=== PATIENT | female | born 1995 | race Caucasian/White ===

== ENCOUNTER 2018-03-24 10:19 | Emergency (ER) | payer OTHER ==
[2018-03-24] MEDS: ADACEL/BOOSTRIX VACCINE (DIPHTH/PERTUSS/ACELL/TETANUS)0.5ML SYR (90715) IM (10:59)
[2018-03-24] MEDS ORDERED: ONDANSETRON 4MG/2ML VIAL (J2405) IV (11:45)
[2018-03-24] MEDS: MECLIZINE 25 MG TABLET PO (11:52)
[2018-03-24] MEDS: NORCO, ANEXSIA 5/325MG TABLET (HYDROcodone/ACETAMINOPHEN) PO (11:53)
[2018-03-24] MEDS: ONDANSETRON 4 MG ORAL DISINTEGRATING TAB (Q0162 PER 1MG) PO (11:53)
== END 2018-03-24 12:53 | disposition home or self-care (01) ==
LOC: M ED 10:19
DX: S06.0X0A Concussion without loss of consciousness, initial encounter (principal); S01.01XA Laceration without foreign body of scalp, initial encounter; W22.8XXA Striking against or struck by other objects, initial encounter; Y92.018 Other place in single-family (private) house as the place of occurrence of the external cause; J30.81 Allergic rhinitis due to animal (cat) (dog) hair and dander; Z91.040 Latex allergy status
CPT/HCPCS: 90715

== ENCOUNTER 2018-03-31 11:10 | Emergency (ER) | payer OTHER | END 2018-03-31 11:48 | disposition home or self-care (01) | LOC: M ED 11:10 | DX: Z48.02 Encounter for removal of sutures (principal) | CPT/HCPCS: 99282 ==

== ENCOUNTER → 2018-09-22 | Outpatient (REF) | payer OTHER ==
[~2018-09-22] MED LIST: LAMI25TA PO; ZOFR4TAB14 PO
[2018-09-22 18:10] LABS: CHLAMYDIA DNA AMPLIFICATION NEGATIVE (NEGATIVE); GC DNA AMPLIFICATION NEGATIVE (NEGATIVE)
== END ==
LOC: M SFHCLERA 13:18
PROVIDERS: ATTEND Nurse Practitioner Family
DX: R11.10 Vomiting, unspecified (principal); R10.32 Left lower quadrant pain

== ENCOUNTER 2019-06-13 20:57 | Emergency (ER) | payer OTHER ==
[~2019-06-13] VITALS: Ht 162.6 cm; Wt 56.8 kg
[2019-06-13] MEDS ORDERED: BUSP10TA PO (21:06)
[2019-06-13 21:29] LABS: APPEARANCE, URINE CLEAR (CLEAR); BACTERIA, URINE AUTO NEGATIVE (NEGATIVE); BILIRUBIN, URINE AUTO NEGATIVE (NEGATIVE); BLOOD, URINE BLOOD NEGATIVE (NEGATIVE); COLOR, URINE YELLOW (YELLOW); GLUCOSE, URINE (UA) AUTO NEGATIVE (NEGATIVE); KETONE, URINE AUTO 1+ mg/dL (NEGATIVE); LEUKOCYTE ESTERASE, URINE AUTO TRACE (NEGATIVE); MUCUS, URINE SMALL (NEGATIVE); NITRITE, URINE AUTO NEGATIVE (NEGATIVE); PROTEIN, URINE AUTO NEGATIVE (NEGATIVE); RBC, URINE AUTO 7 /HPF (0-3); SPECIFIC GRAVITY URINE AUTO 1.029 (1.002-1.035); SQUAMOUS EPITHELIAL CELL UR AU 5 /HPF (0-6); UROBILINOGEN, URINE AUTO 0.2 mg/dL (0.0-2.0); WBC, URINE AUTO 3 /HPF (0-3)
[2019-06-13] MEDS ORDERED: NS 1,000 ML IV ONE (22:00)
[2019-06-13 22:42] LABS: HEMATOCRIT 34.2 % (36.0-47.0); HEMOGLOBIN 10.4 g/dl (12.0-15.5); MEAN CORPUSCULAR HEMOGLOBIN 19.9 pg (27.0-33.0); MEAN CORPUSCULAR HGB CONC 30.4 g/dl (32.0-36.5); MEAN CORPUSCULAR VOLUME 65.5 fl (80.0-96.0); PLATELET COUNT, AUTOMATED 246 10^3/uL (150-450); RED BLOOD COUNT 5.22 10^6/uL (4.00-5.40); WHITE BLOOD COUNT 14.3 10^3/uL (4.0-10.0)
[2019-06-13 23:12] LABS: ALBUMIN 4.6 GM/DL (3.2-5.2); ALT/SGPT 16 U/L (12-78); BILIRUBIN,TOTAL 1.9 MG/DL (0.2-1.0); BLOOD UREA NITROGEN 15 MG/DL (7-18); CALCIUM LEVEL 9.3 MG/DL (8.5-10.1); CARBON DIOXIDE LEVEL 26 MEQ/L (21-32); CHLORIDE LEVEL 108 MEQ/L (98-107); CREATININE FOR GFR 0.66 MG/DL (0.55-1.30); GLOMERULAR FILTRATION RATE > 60.0 (>60); GLUCOSE, FASTING 87 MG/DL (70-100); LIPASE 120 U/L (73-393); POTASSIUM SERUM 4.4 MEQ/L (3.5-5.1); SODIUM LEVEL 140 MEQ/L (136-145); TOTAL PROTEIN 7.4 GM/DL (6.4-8.2)
[2019-06-13 23:27] LABS: HCG, SERUM QUALITATIVE NEGATIVE (NEGATIVE)
[2019-06-13] MEDS ORDERED: ISOVUE-370 76% 100ML VIAL (Q9967) As Ordered ONE (23:51)
--- NOTE | 2019-06-14 00:49 | REPVR ---
PROCEDURE INFORMATION: Exam: CT Abdomen And Pelvis With Contrast Exam date and time: 06/13/2019 11:38 PM Age: 24 years old Clinical history: Abdominal pain; Localized; Left lower quadrant (llq); Additional info: Llq pain TECHNIQUE: Imaging protocol: Computed tomography of the abdomen and pelvis with intravenous contrast. Radiation optimization: All CT scans at this facility use at least one of these dose optimization techniques: automated exposure control; mA and/or kV adjustment per patient size (includes targeted exams where dose is matched to clinical indication); or iterative reconstruction. Contrast material: ISO; Contrast volume: 100 ml; Contrast route: WRIST; COMPARISON: No relevant prior studies available. FINDINGS: Lungs: 4 mm noncalcified left lower lobe nodule. Liver: Normal. No mass. Gallbladder and bile ducts: Normal. No calcified stones. No ductal dilation. Pancreas: Normal. No ductal dilation. Spleen: Normal. No splenomegaly. Adrenals: Normal. No mass. Kidneys and ureters: Normal. No hydronephrosis. Stomach and bowel: Moderate fecal material throughout the colon. No bowel obstruction or inflammatory changes. The small bowel is unremarkable. Appendix: No evidence of appendicitis. Intraperitoneal space: Unremarkable. No free air. No significant fluid collection. Vasculature: Unremarkable. No abdominal aortic aneurysm. Lymph nodes: Unremarkable. No enlarged lymph nodes. Bladder: Unremarkable as visualized. Reproductive: There is an IUD in the uterus. Uterus and adnexa are unremarkable. Bones/joints: Unremarkable. No acute fracture. Soft tissues: Unremarkable. IMPRESSION: 1. Mild constipation. 2. 4 mm left lower lobe nodule. For patients at low risk (minimal or absent history of smoking and of other known risk factors), no routine follow-up is indicated. For patients at high risk (history of smoking or of other known risk factors), consider optional CT at 12 months. (hayes Alves al., [employer], 2017) Electronically signed by: Moy Parker On 06/14/2019 00:48:58 AM
--- NOTE | 2019-06-14 01:15 | REPVR ---
PROCEDURE INFORMATION: Exam: US Pelvis Complete, Transabdominal Exam date and time: 06/14/2019 12:47 AM Age: 24 years old Clinical history: Pelvic pain; Additional info: Iud placement, severe left pelvic pain TECHNIQUE: Imaging protocol: Real-time transabdominal pelvic ultrasound with image documentation. Complete exam. COMPARISON: CT ABD/PEL W/IV CONTRAST ONLY 06/13/2019 11:57 PM FINDINGS: Uterus/cervix: There is an IUD in the endometrial cavity projecting in expected location. Uterus and endometrium are unremarkable. Right adnexa: Ovary is normal. No mass. Normal blood flow. Left adnexa: Ovary is normal. No mass. Normal blood flow. Free fluid: None. Bladder: Normal. IMPRESSION: 1. IUD in expected location. 2. Unremarkable pelvic ultrasound. Electronically signed by: Moy Parker On 06/14/2019 01:14:56 AM
[2019-06-14] MEDS ORDERED: ACETAMINOPHEN TAB 650MG DOSE (2X325MG) PO ONE (01:45)
[2019-06-14] MEDS ORDERED: DOXY100C37 PO (02:25)
[2019-06-14] MEDS ORDERED: DOXYCYCLINE HYCLATE 100 MG TAB PO ONE (02:30)
[2019-06-14 02:46] VITALS: BP 105/63
[2019-06-14 02:54] LABS: CHLAMYDIA DNA AMPLIFICATION NEGATIVE (NEGATIVE); GC DNA AMPLIFICATION NEGATIVE (NEGATIVE)
--- NOTE | 2019-06-14 13:54 | ED PDOC ---
Post-Departure Follow-Up ft lainey james faxed formal report of ct abd/p for fiu Bill Claros MD Jun 14, 2019 13:54
== END 2019-06-14 02:48 | disposition home or self-care (01) ==
LOC: M ED 20:57
DX: R91.1 Solitary pulmonary nodule (principal); N73.9 Female pelvic inflammatory disease, unspecified; R10.2 Pelvic and perineal pain; R42 Dizziness and giddiness; R11.0 Nausea; J45.909 Unspecified asthma, uncomplicated; F31.9 Bipolar disorder, unspecified; F41.9 Anxiety disorder, unspecified; Z91.040 Latex allergy status
CPT/HCPCS: 74177; 76830; 76856; 80053; 81001; 83690; 84702; 84703; 85027; 87210; 87661; 93976; 96360; 96361; 99284; Q9967

== ENCOUNTER → 2019-08-24 | Outpatient (CLI) | payer OTHER ==
[~2019-08-24] MED LIST changes: +BUSP10TA PO; +DOXY100C37 PO
--- NOTE | 2019-08-24 08:05 | REP ---
CT of the chest without contrast for pulmonary nodule: There are no comparison chest CTs. There is a comparison abdomen/pelvis CT dated 06/13/2019 and demonstrate a 4 mm lung nodule within the visualized lung hayden in the left lower lobe. This left lower lobe lung nodule is again identified today and again measures 4 mm and is unchanged. There are no other lung nodules or masses. There are no infiltrates. There are no pleural effusions. The lung hayden otherwise clear. There is no mediastinal or axillary adenopathy. The study is insensitive for hilar adenopathy in the absence of IV contrast. The unenhanced thoracic aorta is unremarkable. Cardiac size is normal. There is no pericardial effusion. The visualized upper abdominal contents are unremarkable. There is no adrenal mass. Impression: There is a 4 mm left lower lobe lung nodule on image 85, unchanged from the abdomen/pelvis CT of 06/14/2019. This is a category II lung nodule with the probability of malignancy less than 1%. Depending on risk factors, follow-up chest CT in 1 year might be considered. Otherwise, negative CT study of the chest without IV contrast. Electronically Signed by Jorge Kelly MD 08/24/2019 07:56 A
== END ==
LOC: M RAD 07:10
PROVIDERS: ATTEND Student in an Organized Health Care Education/Training Program
DX: R91.1 Solitary pulmonary nodule (principal)

== ENCOUNTER 2020-07-08 08:46 | Emergency (ER) | payer OTHER ==
[~2020-07-08] VITALS: Ht 10.2 cm; Wt 60.2 kg
[2020-07-08 10:43] LABS: HCG, SERUM QUALITATIVE NEGATIVE (NEGATIVE)
--- NOTE | 2020-07-08 11:20 | REP ---
INDICATION: vertbral tenderness. COMPARISON: None. TECHNIQUE: Helical scanning is acquired and overlapping 2 mm high resolution axial images were generated and reviewed at bone and soft tissue window settings. Coronal and sagittal multiplanar re-formations images are generated. FINDINGS: There is no evidence of cervical spine element fracture. No skull base fracture is seen. Cervical vertebral body heights are preserved. Alignment is normal. Facet joints are normally aligned bilaterally at each cervical level on multiplanar re-formations images. There is no evidence of intraspinal or paraspinal hematoma. No extra vertebral abnormality is seen. There is slight straightening of the normal cervical lordosis. IMPRESSION: Negative CT study of the cervical spine without contrast. No fracture seen. <Electronically signed by Luis Manuel Jordan > 07/08/20 [id number]
[2020-07-08] MEDS ORDERED: CYCL5TAB PO (11:45)
[2020-07-08 11:55] VITALS: BP 106/64
== END 2020-07-08 12:04 | disposition home or self-care (01) ==
LOC: M ED 08:46
DX: S16.1XXA Strain of muscle, fascia and tendon at neck level, initial encounter (principal); X58.XXXA Exposure to other specified factors, initial encounter; Y92.9 Unspecified place or not applicable; Y93.9 Activity, unspecified; Y99.9 Unspecified external cause status; R51.9 Headache, unspecified; M54.9 Dorsalgia, unspecified; Z91.040 Latex allergy status; Z79.899 Other long term (current) drug therapy